=== PATIENT | male | born 1985 | race Caucasian/White ===

== ENCOUNTER 2018-01-21 08:06 | Emergency (ER) | payer OTHER ==
[2018-01-21 08:12] VITALS: BP 110/84; TEMP 97.9
[2018-01-21] MEDS ORDERED: LIDOCAINE 1% INJ 10MG/ML (20 ML MDV) SQ ONE (08:20)
[2018-01-21 08:28] VITALS: PULSE 90; RESP 16
--- NOTE | 2018-01-21 08:47 | ED ---
Wound/Laceration HPI - General Chief Complaint: Wound/Laceration Stated Complaint: Hand laceration Time Seen by Provider: 01/21/18 08:16 Source: patient, RN notes reviewed Mode of arrival: ambulatory Limitations: no limitations - History of Present Illness Initial Comments: Severity 2-year-old male presents emergency Department chief complaint of laceration to his left hand. Patient states that he was bending a piece of metal and it broke cutting his hand. Patient states his tetanus was updated 2 years ago. Patient denies any paresthesias to his hand. He states he has full range of motion of all digits. He has no other noted injuries. He states that he did put any pressure on it which has seemed to stop the bleeding. He states that was profusely bleeding initially. - Related Data Home Medications Medication Instructions Recorded Confirmed No Known Home Medications 12/12/14 09/11/15 Allergies Allergy/AdvReac Type Severity Reaction Status Date / Time No Known Allergies Allergy Verified 09/11/15 16:51 Review of Systems ROS Statement: Those systems with pertinent positive or pertinent negative responses have been documented in the HPI. ROS Other: All systems not noted in ROS Statement are negative. Past Medical History Past Medical History: No Reported History History of Any Multi-Drug Resistant Organisms: None Reported Past Surgical History: No Surgical Hx Reported Past Psychological History: No Psychological Hx Reported Smoking Status: Former smoker Past Alcohol Use History: None Reported, Occasional Past Drug Use History: Marijuana General Exam Limitations: no limitations General appearance: alert, in no apparent distress Head exam: Present: atraumatic, normocephalic, normal inspection Respiratory exam: Present: normal lung sounds bilaterally. Absent: respiratory distress, wheezes, rales, rhonchi, stridor Cardiovascular Exam: Present: regular rate, normal rhythm, normal heart sounds. Absent: systolic murmur, diastolic murmur, rubs, gallop, clicks Extremities exam: Present: other (Left hand dorsal aspect there is a 4 cm laceration there is tendon fascia showing with no obvious tendon laceration. Patient has full range of motion and full strength of all digits 1 through 5.) Skin exam: Present: warm, dry, intact, normal color. Absent: rash Course Vital Signs 01/21/18 08:09 Temperature 97.9 F Pulse Rate 90 Respiratory 16 Rate Blood Pressure 110/84 O2 Sat by Pulse 99 Oximetry Procedures - Laceration Laceration #1 Consent Obtained: verbal consent Time Out Performed: Yes Indication: laceration Site: hand (left) Size (cm): 4 Description: linear Depth: simple, single layer Anesthetic Used: lidocaine 1%, without epi Anesthesia Technique: local infiltration Amount (mls): 7 Pre-repair: wound explored, irrigated extensively, deep structures intact Type of Sutures: nylon Size of Sutures: 4-0 Number of Sutures: 7 Technique: simple, interrupted Patient Tolerated Procedure: well, no complications Medical Decision Making - Medical Decision Making 32-year-old male presented for left hand laceration. This was repaired there is no obvious tendon laceration. I did explain that if he has any change in strength or functionality of his fingers that he needs to be seen immediately by orthopedics. Patient will follow-up with PCP for recheck in one to 2 days and return for any worsening symptoms. Patient's tetanus is up to date Disposition Clinical Impression: Laceration of left hand Disposition: HOME SELF-CARE Condition: Stable Instructions: Care For Your Stitches (ED), Laceration (ED) Additional Instructions: Have sutures removed in 10-14 days.Please return to the Emergency Department if symptoms worsen or any other concerns. Is patient prescribed a controlled substance at d/c from ED?: No Referrals: William Tran MD [Primary Care Provider] - 1-2 days Time of Disposition: 08:46
== END 2018-01-21 09:05 | disposition home or self-care (01) ==
LOC: EC 08:06
DX: S61.412A Laceration without foreign body of left hand, initial encounter (principal); Z87.891 Personal history of nicotine dependence; W45.8XXA Other foreign body or object entering through skin, initial encounter; Y93.89 Activity, other specified
CPT/HCPCS: 99282; 12002; J2001